=== PATIENT | male | born 1995 | race Hispanic/Latino ===

== ENCOUNTER 2018-07-20 17:45 | Emergency (ER) | payer BC ==
[~2018-07-20] VITALS: Ht 180.3 cm; Wt 88.5 kg
--- NOTE | 2018-07-20 18:20 | NUR ---
YOSELIN CEBALLOS PRESENT DURING TRIAGE TO EVAL PT.
[2018-07-20] MEDS ORDERED: TETRACAINE HCL 0.5% OPTH SOLN 4 ML BTL OP ONE (19:45)
--- NOTE | 2018-07-20 20:05 | NUR ---
DISCHAGE INSTRUCTIONS GIVEN WITH RX. PT EDUCATED ON DISEASE PROCESS AND IMPORTANCE OF FOLLOW UP, VERBALIZED UNDERSTANDING.
[2018-07-20 20:06] VITALS: BP 151/92
== END 2018-07-20 20:10 | disposition home or self-care (01) ==
LOC: ER 17:45
DX: H66.003 Acute suppurative otitis media without spontaneous rupture of ear drum, bilateral (principal)
CPT/HCPCS: 99282